=== PATIENT | female | born 1945 | race Caucasian/White ===

== ENCOUNTER → 2016-09-21 | Outpatient (CLI) | payer OTHER | END | disposition home or self-care (01) | LOC: C.PATH 16:17 | PROVIDERS: ATTEND Dermatology | DX: L91.8 Other hypertrophic disorders of the skin (principal) ==

== ENCOUNTER 2025-04-21 10:37 | Observation (INO) ==
--- NOTE | 2025-03-30 13:32 | PAT Medication Instructions ---
Medication Instructions Date of Service March 30, 2025 Home Medications Medication Instructions Recorded simvastatin 40 mg tablet 40 mg PO HS #90 tabs 09/28/24 escitalopram oxalate 20 mg tablet 20 mg PO QPM #90 tabs 02/24/25 lisinopril 20 1 tab PO QAM #90 tabs 02/24/25 mg-hydrochlorothiazide 12.5 mg tablet Medication List: ascorbic acid (vitamin C) 500 mg capsule 1,000 mg PO QAM glucosamine-chondroitin 250 mg-200 mg tablet (Osteo Bi-Flex) 2 tab PO BID multivitamin (Multiple Vitamins tablet) 1 tab PO QAM cholecalciferol (vitamin D3) 25 mcg (1,000 unit) tablet 1,000 units PO QAM coenzyme Q10 100 mg capsule (CoQ-10) 100 mg PO QAM krill oil 500 mg capsule 500 mg PO QAM psyllium husk 0.4 gram capsule (Metamucil) 0.8 g PO BID biotin 1,000 mcg chewable tablet 1,000 mcg PO QAM simvastatin 40 mg tablet 40 mg PO HS escitalopram oxalate 20 mg tablet 20 mg PO QPM lisinopril 20 mg-hydrochlorothiazide 12.5 mg tablet 1 tab PO QAM acetaminophen 650 mg tablet,extended release 1,300 mg PO Q12H cyanocobalamin (vitamin B-12) 1,000 mcg tablet 1,000 mcg PO QAM MEDICATION INSTRUCTIONS: STOP taking 2 weeks before surgery biotin 1,000 mcg chewable tablet 1,000 mcg PO QAM glucosamine-chondroitin 250 mg-200 mg tablet (Osteo Bi-Flex) 2 tab PO BID coenzyme Q10 100 mg capsule (CoQ-10) 100 mg PO QAM krill oil 500 mg capsule 500 mg PO QAM DO NOT take the morning of surgery cyanocobalamin (vitamin B-12) 1,000 mcg tablet 1,000 mcg PO QAM lisinopril 20 mg-hydrochlorothiazide 12.5 mg tablet 1 tab PO QAM multivitamin (Multiple Vitamins tablet) 1 tab PO QAM ascorbic acid (vitamin C) 500 mg capsule 1,000 mg PO QAM cholecalciferol (vitamin D3) 25 mcg (1,000 unit) tablet 1,000 units PO QAM psyllium husk 0.4 gram capsule (Metamucil) 0.8 g PO BID Take morning of surgery With a small sip of water, OTHERWISE NOTHING TO EAT OR DRINK AFTER MIDNIGHT: acetaminophen 650 mg tablet,extended release 1,300 mg PO Q12H psyllium husk 0.4 gram capsule (Metamucil) 0.8 g PO BID Take evening before surgery acetaminophen 650 mg tablet,extended release 1,300 mg PO Q12H simvastatin 40 mg tablet 40 mg PO HS escitalopram oxalate 20 mg tablet 20 mg PO QPM Other Notes If you have any questions please call us at [phone] or [phone] or [phone] or [phone]
--- NOTE | 2025-04-07 13:59 | Anesthesiology Consultation ---
Date of Service April 07, 2025 Assessment & Plan (1) Encounter for pre-operative examination: - Infectious disease screening: Per assessment on 04/07/25- No known recent infectious disease contacts or current infectious disease symptoms. - Outpatient joint assessment: Pt currently scheduled for inpatient pathway. If surgeon requests review for outpatient joint pathway, patient is not a recommended candidate for outpatient joint program from anesthesia standpoint based on available information. - [place] PCP visit 04/05/25: "Pre-op evaluation: Blood pressure needs to be recheck ed during nurse visit to be medically optimized to proceed. Goal <140/90.. Will consider augmenting treatment if still elevated.. Pruritus of both hands.. Reports itching that comes and goes, occurring about two to three times a week.. Hands appear well-moisturized without any visible external irritants.. Advised to start with an fjyw-yfy-eljrrjf antihistamine such as Claritin or Zyrtec as needed.. Left foot pain.. Pain could be attributed to a combination of arthritis and altered gait due to impending knee replacement surgery.. No evidence of bruising or swelling, and no direct injury reported.. X-ray of the left foot will be deferred until after the knee replacement surgery.. Start taking an antihistamine (claritin, zyrtec or regi) as needed for itching " > Patient states she was told that BP recheck would be done at PAT visit today; 04/07/25 BP: Manual 136/80. Chart Review Chart Review: Acceptable Risk for Surgery and Patient seen in Pre Admission Testing Teaching & Discussion Pre-Anesthesia Teaching/Discussion Notes: Instructed NPO after midnight before surgery,except medications with 15 cc of water. Medication instructions provided according to the [facility] guidelines. History Surgery Operation Date: 04/21/25 07:15 Proposed Procedures p Left Total Knee Arthroplasty - Ross Reza MD Height/Weight Height: 5 ft 3 in Weight: 101.9 kg Allergies Allergy/AdvReac Type Severity Reaction Status Date / Time Penicillins Allergy Rash Verified 04/05/25 14:02 Medications Home Medications Medication Instructions Recorded Confirmed Last Taken ascorbic acid (vitamin C) 500 mg 1,000 mg PO QAM 01/15/19 04/05/25 11/22/19 capsule glucosamine-chondroitin 250 mg-200 2 tab PO BID 01/15/19 04/05/25 11/22/19 mg tablet (Osteo Bi-Flex) multivitamin (Multiple Vitamins 1 tab PO QAM 01/15/19 04/05/25 11/22/19 tablet) cholecalciferol (vitamin D3) 25 1,000 units PO QAM 03/02/19 04/05/25 11/22/19 mcg (1,000 unit) tablet coenzyme Q10 100 mg capsule 100 mg PO QAM 03/02/19 04/05/25 11/22/19 (CoQ-10) krill oil 500 mg capsule 500 mg PO QAM 07/08/19 04/05/25 11/22/19 psyllium husk 0.4 gram capsule 0.8 g PO BID 07/17/19 04/05/25 11/22/19 (Metamucil) biotin 1,000 mcg chewable tablet 1,000 mcg PO QAM 08/25/24 04/05/25 Unknown simvastatin 40 mg tablet 40 mg PO HS #90 tabs 09/28/24 04/05/25 Unknown escitalopram oxalate 20 mg tablet 20 mg PO QPM #90 tabs 02/24/25 04/05/25 Unknown lisinopril 20 1 tab PO QAM #90 tabs 02/24/25 04/05/25 Unknown mg-hydrochlorothiazide 12.5 mg tablet acetaminophen 650 mg 1,300 mg PO Q12H 03/30/25 04/05/25 Unknown tablet,extended release cyanocobalamin (vitamin B-12) 1,000 mcg PO QAM 03/30/25 04/05/25 Unknown 1,000 mcg tablet Past Medical History Medical History Depression History of colon polyps History of COVID-19 12/2024, resolved History of malignant melanoma back, removed History of prediabetes HLD (hyperlipidemia) Hx of basal cell carcinoma Hypersomnolence ongoing Hypertension Osteoarthritis Osteopenia Pulmonary nodule Recently found, plan for monitoring Sleep apnea CPAP (compliant) Spinal stenosis Thyroid nodule "monitoring" per pt Exercise / Class Metabolic Activity III < 4 Walking/Shop/Light housework Past Family History Family History Father Pancreatic cancer Mother Diabetes Myocardial infarction Hypertension Grandmother Myocardial infarction Breast cancer Aunt Cancer Other No family history of adverse response to anesthesia Denies family history of Ovarian cancer Prostate cancer Colorectal cancer Past Surgical History Surgical History History of basal cell carcinoma (BCC) excision History of bilateral oophorectomy History of breast biopsy benign History of colonoscopy History of ear surgery History of prior ablation treatment lower back History of surgical removal of skin lesion hairy nevus from arm, 1967 History of tooth extraction Hx of melanoma excision back S/P cataract extraction left/right Past Anesthesia History No Hx of Anesthesia Complications and No Family Hx of Anesthesia Complications History of PONV No Hx of PONV and Hx of Motion Sickness Social History Smoking Status: Never smoker Do You Dip or Chew Tobacco: No Hx Alcohol Use: Yes Alcohol type: beer and wine alcohol intake frequency: holidays/special occasions only Hx Substance Use: No substance use type: does not use Review of Systems Patient denies chest pain, shortness of breath, dyspnea on exertion, fever, chills, cough, wheezing. Physical Exam Vital Signs BP 146/80 > 136/80 with manual recheck P 61 TEMP 97.8 SP02 95%RA RESP 16 Physical Full cervical extension range of motion. Full TMJ range of motion. TMD 2.5 finger breaths (small chin) Mallampati Score III Dentition: intact, + caps/crowns Lungs: clear throughout to auscultation Cardiac: regular rate and rhythm, no murmurs noted Spine: normal Carotid arteries: negative bruit Extremities: no LE edema Lab Results Anesthesia Preop Results Results Anesthesia Widget: WBC 8.05 K/ul (4.8-10.8) 04/07/25 Hgb 13.5 g/dL (12.0-16.0) 04/07/25 Hct 40.1 % (37.0-47.0) 04/07/25 Plt 284 K/uL (130-400) 04/07/25 Na 141 mmol/L (136-145) 04/07/25 K 4.4 mmol/L (3.5-5.1) 04/07/25 Cl 103 mmol/L (98-107) 04/07/25 CO2 29 mmol/L (21-32) 04/07/25 BUN 12 mg/dl (6-23) 04/07/25 Creat 0.61 mg/dl (0.6-1.2) 04/07/25 Glucose Level 82 mg/dl (70-99(Fasting)) 04/07/25 PT 10.2 Seconds (9.0-12.0) 04/07/25 PTT 24 Seconds (21-31) 04/07/25 INR 1.0 (0.9-1.1) 04/07/25 Urine Color Yellow 04/07/25 Urine Appearance Clear (Clear) 04/07/25 Urine pH 5.5 (4.5-7.5) 04/07/25 Urine Specific [place] 1.020 (1.000-1.030) 04/07/25 Urine Protein Negative (Negative) 04/07/25 Urine Glucose (UA) Negative (Negative) 04/07/25 Urine Ketones Negative (Negative) 04/07/25 Urine Blood Negative (Negative) 04/07/25 Urine Nitrite Negative (Negative) 04/07/25 Urine Bilirubin Negative (Negative) 04/07/25 Urine Urobilinogen Negative (Negative) 04/07/25 Urine Leukocyte Esterase Trace (Negative) H 04/07/25 Urine WBC (Auto) 0-5 /hpf (0-5) 04/07/25 Urine RBC (Auto) 0-2 /hpf (0-2) 04/07/25 Urine Hyaline Casts (Auto) 0-2 /lpf (0-2) 04/07/25 Urine Epithelial Cells (Auto) 3-5 /hpf (0-2) H 04/07/25 Urine Bacteria (Auto) None Seen (None Seen) 04/07/25 Blood Type A Positive 04/07/25 Antibody Screen NEGATIVE 04/07/25 Testing Electrocardiogram Date: 04/07/25 NSR at 62bpm. Low voltage QRS. Stress Test Date: 09/15/24 Impression: 1. Negative exercise stress ECG for ischemia at 93% MPHR. 2. No arrhythmia. 3. Appropriate blood pressure response to exercise. 4. No chest pain reported. 5. Fair exercise tolerance. Other Testing CT Chest Date: 01/26/25 A few ground-glass densities in lower lobes. Probably inflammatory in nature. A tiny RUL nodule. 1 year f/u chest CT recommended.
--- NOTE | 2025-04-19 16:09 | History & Physical Report ---
Date of Service April 19, 2025 Assessment & Plan (1) Bilateral primary osteoarthritis of knee: Plan: End-stage bilateral knee osteoarthritis medial compartment with associated patellofemoral osteoarthritis left knee greater than right symptomatically. More stiffness left knee than right. Plans to proceed with staged bilateral knee replacement starting with left knee. Patient scheduled for left Nathalia persona knee replacement and will add a cemented stem extension to the tibial component. History of Present Illness Chief Complaint: Left greater than right knee chronic pain Primary Care Provider: Gemma Wilson DO 79-year-old female with chronic bilateral knee pain failed conservative management. Left knee greater than right. Patient denies headaches, sweats, fevers, chills, double vision, blurred vision, cough, sore throat, dysphagia, chest pain, sob at rest, wheezing, n/v/d/c, numbness, tingling, fatigue, urinary symptoms, mood disorders. ROS positive for sleep apnea/CPAP, chronic depression, shortness of breath with physical activity, spinal stenosis and low back issues. Allergies Allergy/AdvReac Type Severity Reaction Status Date / Time Penicillins Allergy Rash Verified 04/05/25 14:02 Home Medications Medication Instructions Recorded Confirmed Type ascorbic acid (vitamin C) 500 mg 1,000 mg PO QAM 01/15/19 04/05/25 History capsule glucosamine-chondroitin 250 mg-200 2 tab PO BID 01/15/19 04/05/25 History mg tablet (Osteo Bi-Flex) multivitamin (Multiple Vitamins 1 tab PO QAM 01/15/19 04/05/25 History tablet) cholecalciferol (vitamin D3) 25 1,000 units PO QAM 03/02/19 04/05/25 History mcg (1,000 unit) tablet coenzyme Q10 100 mg capsule 100 mg PO QAM 03/02/19 04/05/25 History (CoQ-10) krill oil 500 mg capsule 500 mg PO QAM 07/08/19 04/05/25 History psyllium husk 0.4 gram capsule 0.8 g PO BID 07/17/19 04/05/25 History (Metamucil) biotin 1,000 mcg chewable tablet 1,000 mcg PO QAM 08/25/24 04/05/25 History simvastatin 40 mg tablet 40 mg PO HS #90 tabs 09/28/24 04/05/25 Rx escitalopram oxalate 20 mg tablet 20 mg PO QPM #90 tabs 02/24/25 04/05/25 Rx lisinopril 20 1 tab PO QAM #90 tabs 02/24/25 04/05/25 Rx mg-hydrochlorothiazide 12.5 mg tablet acetaminophen 650 mg 1,300 mg PO Q12H 03/30/25 04/05/25 History tablet,extended release cyanocobalamin (vitamin B-12) 1,000 mcg PO QAM 03/30/25 04/05/25 History 1,000 mcg tablet Past Med/Surg History Problem List (Updated 04/19/25 @ 16:07 by Ross Reza MD) Bilateral primary osteoarthritis of knee Encounter for pre-operative examination Vitamin D deficiency Prediabetes Osteoarthritis of knees, bilateral Vitamin B12 deficiency Left lumbar radiculopathy Hearing loss History of basal cell cancer Depression (Chronic) Hyperlipidemia (Chronic) Benign essential hypertension (Chronic) Benign colonic polyp (Chronic) Medical History Thyroid nodule "monitoring" per pt Pulmonary nodule Recently found, plan for monitoring History of COVID-19 12/2024, resolved Sleep apnea CPAP (compliant) History of prediabetes HLD (hyperlipidemia) Hx of basal cell carcinoma Hypersomnolence ongoing History of malignant melanoma back, removed History of colon polyps Spinal stenosis Osteopenia Osteoarthritis Depression Hypertension Surgical History History of surgical removal of skin lesion hairy nevus from arm, 1967 Hx of melanoma excision back S/P cataract extraction left/right History of tooth extraction History of breast biopsy benign History of bilateral oophorectomy History of prior ablation treatment lower back History of basal cell carcinoma (BCC) excision History of ear surgery History of colonoscopy Family History Father Pancreatic cancer Mother Diabetes Myocardial infarction Hypertension Grandmother Myocardial infarction Breast cancer Aunt Cancer Other No family history of adverse response to anesthesia Denies family history of Ovarian cancer Prostate cancer Colorectal cancer Social History Smoking Status: Never smoker Second Hand Exposure: Yes (hx); Do You Dip or Chew Tobacco: No; Tobacco Cessation Education Requested by Patient: No Hx Alcohol Use: Yes Alcohol type: beer and wine Alcohol Intake Frequency: Monthly or Less Hx Substance Use: No Preferred Language: Georgian Communication Ability: Effective Visual Impairment: Limited Hearing Ability: Use of Hearing Aid Chief Design Engineer Required: No Beliefs That Will Affect Care: None marital status: / Current Living Situation: Alone current occupational status: retired How many Children do You have: 1 Other Information That Helps Us Care for You: No Feels Safe at Home: Yes Safety Concerns: Feels Safe At This Time Childhood Exposure to Second-Hand Smoke: Yes Diet: regular caffeine: Yes during the past year weight has: remained stable Dental Care, Regularly: Yes Physical Activity Frequency: 1-2 Times per Week Physical Activity Frequency Comment: [employer] - Religion classes twice a week Seatbelt Use: always Sunscreen Use: No Do you think of yourself as: straight/heterosexual Gender Identity: Female Assistive Devices: CPAP, Glasses and Hearing Aid - Bilateral Assistive Devices Comment: will not wear hearing aids DOS Review of Systems All systems reviewed & are unremarkable except as noted in HPI & below Physical Exam Constitutional: WD/WN, vitals as above Respiratory: normal respiratory effort; no respiratory distress Cardiovascular: Rate/Rhythm: regular rate and regular rhythm Musculoskeletal: Left and right knees are mild varus there is a moderate left knee and mild right knee effusion. There is moderate left knee swelling and no instability in either knee. More decreased range of motion left and right knee with 115 degrees flexion on left and 120 on the right full extension both knees distal lower extremity neurovascular exam is normal. Skin: no rashes, warm and dry Neurologic: normal touch/pain/proprioception Psychiatric: A+Ox3, euthymic affect Results & Data Diagnostic Findings X-rays bilateral knees demonstrates she has [id number] medial compartment of both knees on flexion views and has patellofemoral and medial compartment osteoarthritis bilaterally.
[~2025-04-21 10:37] MED LIST: BUPIVACAINE 0.25% PF 30 ML VIAL ONE; BUPIVACAINE 0.5 % 5 MG/1 ML PF 10ML VIAL ONE; DEXAMETHASONE SOD INJ 4 MG/ML VIAL ONE; EPINEPHrine INJ 1 MG/ML AMP ONE
[2025-04-21] MEDS: METOCLOPRAMIDE HCL 10 MG TABLET PO SCH (10:59)
[2025-04-21] MEDS: FAMOTIDINE 20 MG TAB PO SCH (10:59)
[2025-04-21] MEDS: VANCOMYCIN HCL 1,500 MG in SODIUM CHLORIDE 0.9% 500 ML IV SCH (10:59)
[2025-04-21] MEDS: dexAMETHasone**PF** 10 MG/ML VIAL IV SCH (10:59)
[2025-04-21] MEDS: CeleBREX 200 MG CAP PO SCH (11:00)
[2025-04-21] MEDS: GABAPENTIN 300 MG CAP PO SCH (11:00)
[2025-04-21] MEDS: LR 60ML/HR IV SCH (11:00)
[2025-04-21] MEDS: LR 500ML BOLUS, THEN 15ML/HR IV SCH (11:02)
[2025-04-21] MEDS: ACETAMINOPHEN 500 MG TAB PO SCH ×2 (11:02→21:31)
[2025-04-21] MEDS ORDERED: PROPOFOL IV EMULSION 10 MG/ML 100 ML VIAL IV ONE (14:02)
[2025-04-21] MEDS ORDERED: LIDOCAINE 2% 2 ML VIAL/AMP(20MG/ML) INFIL ONE (14:02)
[2025-04-21] MEDS ORDERED: ROPIVACAINE 0.5% 5 MG/ML 30 ML VIAL ONE (14:38)
--- NOTE | 2025-04-21 15:01 | History & Physical Bridge Note ---
Date of Service April 21, 2025 History & Physical Bridge Note I have examined the patient, reviewed the History & Physical and in the interval since the performance of the History & Physical I have noted the following changes of clinical significance: no changes noted
[2025-04-21] MEDS ORDERED: MIDAZOLAM HCL 1 MG/ML 2ML VIAL ONE (15:15)
[2025-04-21] MEDS: TRANEXAMIC ACID 1,000 MG **IV Pre-op IV SCH (15:19)
[2025-04-21] MEDS: ROPIVACAINE 0.5% HCL/PF 246 MG, Ketorolac (*for OR use only*) 30 MG in SODIUM CHLORIDE ... INFIL SCH (17:16)
[2025-04-21] MEDS: ORTHO JOINT ANESTHETIC ONE (17:19)
[2025-04-21] MEDS ORDERED: ONDANSETRON INJ 2 MG/ML 2 ML VIAL ONE (17:40)
--- NOTE | 2025-04-21 17:56 | Operative Report ---
Post Operative Report Pre & Post Diagnosis Operation Date: 04/21/25 13:35 Pre-Op Diagnosis: Left Knee Degenerative Joint Disease, osteoarthritis Post-Op Diagnosis: Left Knee Degenerative Joint Disease, osteoarthritis I identified the patient and participated in the time-out.: Yes Procedure Operation Date: 04/21/25 13:35 Actual Procedures p Left Total Knee Arthroplasty(Left), application lora and Acticoat superficial wound VAC- Ross Reza MD Surgeon Ross Reza MD Quill Machine Tender MARIO Sands Estimated Blood Loss 5 Findings Consistent with Post-Op Diagnosis Specimens Bone cuts Drains 2 Hemovac Anesthesia Type MAC Spinal Regional Complications none Disposition Disposition: Recovery Room Indications 79-year-old female with bilateral knee pain failed conservative management. Radiographs demonstrate tricompartmental osteoarthritis and grade 4 osteoarthritis medial compartment on flexion weightbearing views bilaterally. Here for staged knee replacement starting with left knee. Description of Procedure Patient was taken to the operating room placed supine on the operating table and anesthetized under spinal MAC regional block anesthesia. Exam under anesthesia demonstrated mild to moderate effusion full extension flexion to about 115 degrees with a stiff knee. There was moderate obesity. No instability.. A pneumatic tourniquet was placed about the moderately obese thigh of the left lower extremity. The left lower extremity was prepped and draped in usual sterile fashion. The leg was elevated exsanguinated with an Esmarch bandage and the pneumatic tourniquet was raised to 325 mm mercury. An anterior incision was made across the left knee. The skin was incised longitudinally subcutaneous fl aps were elevated and an incision was made through the medial retinaculum extending up into the mid third of the quadriceps tendon and extended down to the medial tibial tubercle. Intra-articular findings demonstrated primarily medial and patellofemoral osteoarthritis with thinning of the patella articular surface grade 3 close to grade 4 and grade 3 and 4 medial compartment osteoarthritis. The knee was exposed by excising the infrapatellar fat pad, excising the meniscal remnants and anterior cruciate ligament. Any inflamed synovial tissue was resected. The fat pad over the anterior femur was resected for placement of the component in that area. The lateral synovial bands were release. The femur was exposed. The custom femoral cutting block was pinned in position. The distal femoral cutting block was applied. The distal femoral cut was made with the oscillating saw. The size 7, 4-in-1 cutting block was placed. Patient clearly had a AP mL mismatch with narrow femur. The anterior and posterior chamfer cuts were made. The knee was extended and a subperiosteal peel lateral release was performed around the patella. The patella width was measured and width was reproduced using freehand cut technique. The 32 millimeter symmetrical patella was used. 3 drill holes are made for the pegs. The tibia was exposed. A custom tibial cutting block was positioned and drill holes were made for the cutting guide. Cutting guide was placed and the proximal cut was made with the oscillating saw. All osteophytes were resected. The lamina manager outreach was used to assess ligamentous balance and the ligaments were balanced in extension and flexion. No releases were required. The tibia was reexposed and measured for a size C tibial component. This was externally rotated in line with the tibial tubercle and the fixation pins were drilled. The proximal tibia was fashioned with the drill and punch. The size 7 CR femoral trial was inserted. The trial MC inserts were used. The 10 mm insert gave balanced ligaments through full range of motion. The patella tracked centrally. the trials were removed. The orthomix anesthetic cocktail was injected per protocol. The knee was then copiously irrigated with pulsatile lavage saline solution. The final components were cemented with Refobacin bone cement. The final components were Nathalia persona size 7 narrow CR left femoral component with a C left tibial component with a 14 x 30 mm additional cemented stem added to the implant with a 10 mm MC tibial polyethylene and a 32 mm symmetrical polyethylene patella. After the cement cured with the knee in full extension the Irrisept irrigation was utilized. The knee joint was then copiously irrigated with pulsatile lavage saline solution . 2 drains were brought out laterally and connected to a Hemovac. The quadriceps tendon and medial retinaculum were closed with figure of eight #2 Fiberwire sutures in the medial retinaculum and distal quad tendon and addition Fiberwire suture at the apex of the quad split and at the level of the tibial polyethylene. A 0 stratofix running locking suture placed from the apex proximally down to the level of inferior pole patella. medial retinaculum below that level closed with interrupted figure 8 #1 Vicryl. The knee was taken through a full range of motion which was 0 through 125 degrees and the repair was secure. The subcut aneous tissues were closed with 2-0 Vicryl sutures and skin was closed with surgical magda.A lora and Acticoat superficial wound VAC was applied and the patient tolerated the procedure well. Watson MARTIN my physician assistant finance manager participated as conference assistant and was an integral part in all aspects of the procedure, he assisted in soft tissue retraction, instrument management ,leg positioning, the closure, application of the wound VAC and will participate in the postoperative care of the patient. Im ordering collagen sheets as a primary dressing and bordered super absorbent for secondary dressings for the wound resulting from this surgery. Collagen is being utilized to encourage the growth of blood vessels and granulation tissue. The collagen will also speed up the wound healing process, increase skin tensile strength at the surgery site and lessen the chance of a wound dehiscence, help prevent infection, and reduce the appearance of scarring. The silicone secondary dressings will protect the wound and help keep it clean and minimize that chances for infection. I believe that this treatment protocol is medically necessary to help facilitate the best outcome possible for my patient. I attest to the content of the Intraoperative Record and any orders documented therein. Any exceptions are noted below.
[2025-04-21 18:20] VITALS: RESP 18
--- NOTE | 2025-04-21 18:26 | Anesthesiology Progress Note ---
Date of Service April 21, 2025 Anesthesia Post Procedure Vital Signs Vital Signs: Temp Pulse Pulse Resp BP Pulse Ox O2 Del Method 04/21/25 18:20 63 18 133/58 L 96 Room Air 04/21/25 18:10 36.7 C 69 20 136/67 96 Room Air 04/21/25 18:00 71 18 135/63 96 Room Air 04/21/25 17:52 36.6 C 70 18 129/63 95 Room Air 04/21/25 10:45 36.8 C 73 20 155/71 H 96 Room Air Transfer of Care Handoff Completed per policy Notes Mental Status: alert / awake / arousable Patient Amnestic to Procedure: Yes Nausea / Vomiting: adequately controlled Pain: adequately controlled Airway Patency, RR, SpO2: stable & adequate BP & HR: stable & adequate Hydration State: stable & adequate Anesthetic Complications: no major complications apparent
[2025-04-21] MEDS ORDERED: VANCOMYCIN CONSULT ACTIVE PRN (18:28)
[2025-04-21] MEDS ORDERED: ONDANSETRON INJ 2 MG/ML 2 ML VIAL IV PRN (18:28)
[2025-04-21] MEDS ORDERED: HYDROmorphone INJ 0.5 MG/0.5 ML SYR IV PRN (18:28)
[2025-04-21] MEDS ORDERED: MAGNESIUM HYDROXIDE SUSP 30 ML UDC PO PRN (18:28)
[2025-04-21] MEDS ORDERED: ALUMINUM/MAGNESIUM SUSP 30 ML UDC PO PRN (18:28)
[2025-04-21] MEDS ORDERED: METOCLOPRAMIDE HCL INJ 5 MG/ML 2 ML VIAL IV PRN (18:28)
[2025-04-21] MEDS ORDERED: NALOXONE HCL 0.4 MG/1 ML VIAL/CARP IV PRN (18:28)
[2025-04-21] MEDS ORDERED: diphenhydrAMINE Capsule 25 MG CAP PO PRN (18:28)
[2025-04-21] MEDS ORDERED: KETOROLAC TROMETHAMINE 15 MG/ML VIAL IV PRN (18:28)
--- NOTE | 2025-04-21 18:52 | Communication Note ---
Date of Service: April 21, 2025 Postop day [address] Reza Hx HTN, HLD Preop labs notable for slight elevation of calcium Slightly elevated A1c Reviewed postop orders - no recommended changes right now I will see in consult in AM, please call [facility] for any concerns or issues overnight
[2025-04-21] MEDS: SODIUM CHLORIDE 0.9% 1,000 ML IV SCH (19:32)
--- NOTE | 2025-04-21 19:58 | XRay Report ---
Exam: Left knee Reason for exam: Total knee arthroplasty. Previous studies: MR knee 03/23/2025. FINDINGS: Anterior surgical skin clips and component cemented total knee arthroplasty are noted. Gas is seen in the soft tissues again likely postoperative. Surgical drain is present. Electronic device with battery is noted superiorly. IMPRESSION: Status post total knee arthroplasty. Electronically signed by Deangelo Saleem 04-21-2025 7:57 PM
[2025-04-21] MEDS: TRANEXAMIC ACID / 0.7% NACL 1,000 MG/100 ML BAG IV SCH (21:17)
[2025-04-21] MEDS: SENNA 8.6 MG TAB PO SCH (21:30)
[2025-04-21] MEDS: DOCUSATE SODIUM 100 MG CAP PO SCH (21:30)
[2025-04-21] MEDS: SIMVASTATIN 40 MG TAB PO SCH (21:33)
[2025-04-21] MEDS: CALCIUM POLYCARBOPHIL 625MG TAB PO SCH (21:33)
[2025-04-21] MEDS: ASPIRIN 81 MG ECTAB PO SCH (21:33)
[2025-04-21] MEDS: ESCITALOPRAM OXALATE 20 MG TAB PO SCH (21:34)
[2025-04-22] MEDS: VANCOMYCIN HCL 1,500 MG in SODIUM CHLORIDE 0.9% 500 ML IV SCH (00:46)
[2025-04-22 06:48] LABS: Hematocrit (blood only) 34.6 % (37.0-47.0); Hemoglobin 11.7 g/dL (12.0-16.0); Mean Corpuscular Hemoglobin 32.3 pg (25.0-34.0); Mean Corpuscular Volume 95.6 fL (80.0-100.0); Platelet Count 215 K/uL (130-400); RDW Standard Deviation 43.4 fL (36.4-46.3); Red Blood Count 3.62 M/uL (4.20-5.40); White Blood Count 11.70 K/ul (4.8-10.8)
[2025-04-22 07:10] LABS: Anion Gap 8.0 (3-11); Blood Urea Nitrogen 15.0 mg/dl (6-23); Calcium 8.7 mg/dl (8.6-10.3); Carbon Dioxide 22.0 mmol/L (21-32); Chloride 107.0 mmol/L (98-107); Creatinine Clr Calc Pharmacy 84.7 ml/min; Glucose 123.0 mg/dl (70-99(Fasting)); Potassium 4.3 mmol/L (3.5-5.1); Sodium 137.0 mmol/L (136-145)
[2025-04-22] MEDS: dexAMETHasone 10 MG in SYRINGE 0 ML IV SCH (07:58)
[2025-04-22] MEDS: LISINOPRIL/HCTZ 20/12.5MG 1 TAB TAB PO SCH (07:59)
[2025-04-22] MEDS: CHOLECALCIFEROL 25 MCG (1000 UNITS) TAB PO SCH (08:00)
[2025-04-22] MEDS: MULTIVITAMIN TAB PO SCH (08:00)
[2025-04-22] MEDS: CYANOCOBALAMIN (B-12) 500 MCG TABLET PO SCH (08:00)
[2025-04-22] MEDS: ASCORBIC ACID 500 MG TAB PO SCH (08:00)
[2025-04-22 08:26] VITALS: BP 152/68; PULSE 68; TEMP 98.2; O2SAT 99
--- NOTE | 2025-04-22 08:53 | Orthopedic Progress Note ---
Date of Service April 22, 2025 Assessment & Plan (1) Bilateral primary osteoarthritis of knee: Plan: -POD #1 s/p left TKA with Dr. Reza -Patient is doing well. A bit hypertensive this morning but around her baseline with history of HTN. Continue home lisinopril-HCTZ. VS otherwise stable -WBAT -Hemovac drains to be removed prior to d/c -Continue audra and Acticoat superficial wound vac x 7 days -Pain control as written -VTE ppx with ASA and CHELY copeland -Plan to discharge home today with sister. Followup in the office 2 weeks post- op as scheduled Admission and Anticipated Discharge Date Admission Date: April 21, 2025 Subjective POD #1 s/p left TKA. Patient did well overnight. She has been able to get up and out of bed with her walker. Pain has been controlled on current regimen. No other acute complaints this morning. Looking forward to going home to. Physical Exam Physical Exam: Resting in bed, no acute distress Musculoskeletal: LLE: Dressings clean, dry and intact. Hemovac drain with ~60 mL output, to be removed. Audra in place. Compartments soft and compressible. Dorsi/plantarflexion intact. She is able to perform straight leg raise off of the bed and active knee flexion intact. Dorsal pedal pulse palpable, NVI Results & Data Vital Signs (Past 12 Hours) Vital Signs Temp Pulse Resp BP BP Pulse Ox O2 Del Method 04/22/25 08:23 36.8 C 68 18 152/68 H 99 Room Air 04/22/25 04:30 36.6 C 63 18 125/63 94 Room Air 04/21/25 23:10 36.7 C 63 18 134/66 93 Room Air, CPAP
--- NOTE | 2025-04-22 10:03 | Consultation ---
Date of Consultation April 22, 2025 Assessment & Plan (1) Bilateral primary osteoarthritis of knee: (2) Status post total left knee replacement: (3) Prediabetes: (4) Hyperlipidemia: (5) Benign essential hypertension: (6) Leukocytosis: (7) Anemia: (8) Thyroid nodule: (9) Pulmonary nodule: (10) Sleep apnea: Plan 79yo female with history of HTN, hyperlipidemia, pre-DM, obesity, ALVERTO on CPAP -- s/p left TKR, POD #1. Doing well from medical & orthopedic standpoint. #HTN - -BPs acceptable on lisinopril-HCTZ -labs including magnesium are acceptable on lisinopril-HCTZ -cont both meds upon transition home #hyperlipidemia - -cont statin upon transition home #ALVERTO - -cont CPAP #pre-DM - -hemoglobin a1c 5.8% in August 2024, and glucose is only 123 this am fasting - despite jeronimo-operative dexamethasone administration -no Rx needed at this time #mild leukocytosis - -likely 2nd to dexamethasone use -no infectious symptoms -no Rx needed #DVT proph - -agree with asa 81mg BID x 4-6 weeks #chronic dyspnea on exertion - -had stress test but it was only a treadmill EKG stress last spring -[id number] it was negative -if SOTO continues consider stress echo or nuc stress as outpatient -CT chest done this fall without any pathology that would account for the dyspnea Did discuss use of senna and/or miralax at home for constipation From medical standpoint she is stable and acceptable for d/c home today. Thank you for this consult. History of Present Illness Requesting Physician: Ross Reza MD Reason for Consultation: post-op medical management Attending Physician: Ross Reza MD History of Present Illness 79yo female with history of HTN, pre-DM, hyperlipidemia, RUL lung nodule, and small thyroid nodules presented on 04/21 for elective Left Total Knee Replacement by Dr Matthew Reza. Minimal blood loss (5ml). Since surgery she has felt well with no dyspnea, chest pain, nausea or vomiting. +flatus but no stool yet. Eating/drinking without difficulty. Mild left knee pain only. She already worked with PT/OT today and has been cleared for home. Her sister will be staying with her for several weeks. Patient reports chronic dyspnea on exertion. She had a negative treadmill stress test last spring. There has been no change in her activity tolerance. A CT chest done in 01/2025 showed a small RUL lung nodule - 3mm. Scattered ground glass opacities were seen in the bases as well. Allergies Allergy/AdvReac Type Severity Reaction Status Date / Time Penicillins Allergy Rash Verified 04/21/25 10:53 Home Medications Medication Instructions Recorded Confirmed Type ascorbic acid (vitamin C) 500 mg 1,000 mg PO QAM 01/15/19 04/21/25 History capsule glucosamine-chondroitin 250 mg-200 2 tab PO BID 01/15/19 04/21/25 History mg tablet (Osteo Bi-Flex) multivitamin (Multiple Vitamins 1 tab PO QAM 01/15/19 04/21/25 History tablet) cholecalciferol (vitamin D3) 25 1,000 units PO QAM 03/02/19 04/21/25 History mcg (1,000 unit) tablet coenzyme Q10 100 mg capsule 100 mg PO QAM 03/02/19 04/21/25 History (CoQ-10) krill oil 500 mg capsule 500 mg PO QAM 07/08/19 04/21/25 History psyllium husk 0.4 gram capsule 0.8 g PO BID 07/17/19 04/21/25 History (Metamucil) biotin 1,000 mcg chewable tablet 1,000 mcg PO QAM 08/25/24 04/21/25 History simvastatin 40 mg tablet 40 mg PO HS #90 tabs 09/28/24 04/21/25 Rx escitalopram oxalate 20 mg tablet 20 mg PO QPM #90 tabs 02/24/25 04/21/25 Rx lisinopril 20 1 tab PO QAM #90 tabs 02/24/25 04/21/25 Rx mg-hydrochlorothiazide 12.5 mg tablet cyanocobalamin (vitamin B-12) 1,000 mcg PO QAM 03/30/25 04/21/25 History 1,000 mcg tablet acetaminophen 500 mg tablet 1,000 mg (2 x 500 mg) PO Q8H #90 04/20/25 04/21/25 Rx (Tylenol Extra Strength) tabs aspirin 81 mg tablet,delayed 81 mg PO BID #60 tabs 04/20/25 04/21/25 Rx release cefadroxil 500 mg capsule 500 mg PO Q12H #28 caps 04/20/25 04/21/25 Rx celecoxib 200 mg capsule (Celebrex) 200 mg PO Q12H #60 caps 04/20/25 04/21/25 Rx oxycodone 5 mg tablet 5 mg PO Q4H PRN pain #30 tabs 04/20/25 04/21/25 Rx Patient History Medical History Thyroid nodule "monitoring" per pt Pulmonary nodule Recently found, plan for monitoring History of COVID-19 12/2024, resolved Sleep apnea CPAP (compliant) History of prediabetes HLD (hyperlipidemia) Hx of basal cell carcinoma Hypersomnolence ongoing History of malignant melanoma back, removed History of colon polyps Spinal stenosis Osteopenia Osteoarthritis Depression Hypertension Surgical History History of surgical removal of skin lesion hairy nevus from arm, 1967 Hx of melanoma excision back S/P cataract extraction left/right History of tooth extraction History of breast biopsy benign History of bilateral oophorectomy History of prior ablation treatment lower back History of basal cell carcinoma (BCC) excision History of ear surgery History of colonoscopy Family History Father Pancreatic cancer Mother Diabetes Myocardial infarction Hypertension Grandmother Myocardial infarction Breast cancer Aunt Cancer Other No family history of adverse response to anesthesia Denies family history of Ovarian cancer Prostate cancer Colorectal cancer Social History Smoking Status: Never smoker Second Hand Exposure: Yes (hx); Do You Dip or Chew Tobacco: No; Tobacco Cessation Education Requested by Patient: No Hx Alcohol Use: Yes Alcohol type: beer and wine Alcohol Intake Frequency: Monthly or Less Hx Substance Use: No Preferred Language: Kazakh Communication Ability: Effective Visual Impairment: Limited Hearing Ability: Use of Hearing Aid Bar Waiter/Waitress Required: No Beliefs That Will Affect Care: None marital status: / Current Living Situation: Alone current occupational status: retired How many Children do You have: 1 Other Information That Helps Us Care for You: No Feels Safe at Home: Yes Safety Concerns: Feels Safe At This Time Childhood Exposure to Second-Hand Smoke: Yes Diet: regular caffeine: Yes during the past year weight has: remained stable Dental Care, Regularly: Yes Physical Activity Frequency: 1-2 Times per Week Physical Activity Frequency Comment: [employer] - [employer] classes twice a week Seatbelt Use: always Sunscreen Use: No Do you think of yourself as: straight/heterosexual Gender Identity: Female Assistive Devices: Walker and Other Assistive Devices Comment: will not wear hearing aids DOS Review of Systems Review of Systems: gen - no recent fevers; normal appetite; no weight changes HENT - no recent URI CV - no chest pain; mild LE edema even prior to the hospitalization pulm - chronic dyspnea on exertion, no dyspnea at rest GI - no abd pain or N/V or chronic constipation; no blood in stool - no hematuria musculo - left knee pain only skin - no rash neuro - no focal motor weakness Physical Exam Physical Exam: gen - NAD, sitting in chair, obese, pleasant eyes - PERRL HENT - mouth with MMM neck - no JVD, no enlarged thyroid, no lymph nodes heart - RRR, s1 s2, 1/6 CHYNA RUSB and LSB lungs - CTA b/l abd - soft NT ND BS+ ext - trace edema right hobbs/ankle; 1+ edema left hobbs/ankle vascular - 2+ pulses b/l feet musculo - left knee wrapped in CYNDY wrap; drain in place psych - a/o x 3 Results & Data Vital Signs (Past 12 Hours) Vital Signs Temp Pulse Resp BP BP Pulse Ox O2 Del Method 04/22/25 08:23 36.8 C 68 18 152/68 H 99 Room Air 04/22/25 04:30 36.6 C 63 18 125/63 94 Room Air 04/21/25 23:10 36.7 C 63 18 134/66 93 Room Air, CPAP Laboratory Results Laboratory Results - last 24 hr 04/22/25 06:15 WBC 11.70 H RBC 3.62 L Hgb 11.7 L Hct 34.6 L MCV 95.6 MCH 32.3 MCHC 33.8 RDW Std Deviation 43.4 RDW Coeff of George 12.2 Plt Count 215 MPV 8.9 L Sodium 137 Potassium 4.3 Chloride 107 Carbon Dioxide 22 Anion Gap 8 BUN 15 Creatinine 0.62 Est Cr Clr Drug Dosing 84.7 eGFR 91.09 BUN/Creatinine Ratio 24.2 H Glucose 123 H Calcium 8.7 Magnesium 1.9 PG Care Time/CCT Total # of Minutes Spent Total Time Spent with Patient: Total time spent is greater than 50% in coordination of care (as documented) at patient's floor/unit and/or counseling patient: Coding Level of Care Code 79011 INT INP/OBS CARE 1/40MIN Diagnoses Bilateral primary osteoarthritis of knee M17.0 Status post total left knee replacement Z96.652 Prediabetes R73.03 Hyperlipidemia E78.5 Benign essential hypertension I10 Leukocytosis D72.829 Anemia D64.9 Thyroid nodule E04.1 Pulmonary nodule R91.1 Sleep apnea G47.30
== END 2025-04-22 10:58 | disposition home or self-care (01) ==
LOC: 3E 10:37 → ASU 10:37